=== PATIENT | male | born 1950 | race Caucasian/White ===

== ENCOUNTER 2017-05-31 05:14 | Inpatient (IN) | payer BC, OTHER ==
[2017-05-19 08:20] VITALS: BMI 31.0
--- NOTE | 2017-05-19 08:58 | PAT Medication Instructions ---
Service Date May 19, 2017. Current Home Medication List Loratadine (Claritin), 10 MG PO PRN PRN for ALLERGIES Naproxen (Aleve), 220 MG PO PRN PRN for PAIN Medication Instructions For Your Scheduled Surgery - Hold the following medications the morning of surgery: Loratadine (Claritin), 10 MG PO PRN for ALLERGIES Naproxen (Aleve), 220 MG PO PRN for PAIN *Nothing to eat or drink after midnight* If you have any questions please call us at [phone] or [phone] or [phone]
--- NOTE | 2017-05-19 09:36 | DIAGNOSTIC IMAGING REPORT ---
CHEST PREADMISSION(PA/LAT) HISTORY: 67-year-old male resents for a preoperative screening chest radiograph for left hip surgery. COMPARISON: None available. TECHNIQUE: Frontal and lateral views of the chest. FINDINGS: There is no pneumothorax, pleural effusion or focal airspace consolidation. No overt pulmonary edema. The cardiac silhouette is upper limits of normal. Degenerative changes are present within the right AC joint. There is mild convex right curvature of the midthoracic spine with multilevel endplate spurring and intervertebral disc space narrowing. IMPRESSION: No acute cardiopulmonary process. Electronically signed by: Almas Davenport 05/19/2017 9:34 AM Dictated Date/Time: 05/19/2017 9:32 AM
[2017-05-19 10:04] LABS: BASO % 0.6 %; BASO ABS # 0.04 K/uL (0-0.2); COMPLETE YES; EOS % 1.1 %; HEMATOCRIT 45.2 % (42-52); IG% 0.5 %; LYMPH % 28.1 %; LYMPH ABS # 1.81 K/uL (1.2-3.4); MEAN CELL VOLUME 91.5 fL (80-100); MEAN CORPUSCULAR HEMOGLOBIN 30.2 pg (25-34); MEAN PLATELET VOLUME 10.2 fL (7.4-10.4); MONO % 8.5 %; NEUT % 61.2 %; PLATELET COUNT 242 K/uL (130-400); RED BLOOD COUNT 4.94 M/uL (4.7-6.1); WHITE BLOOD COUNT 6.44 K/uL (4.8-10.8)
[2017-05-19 10:05] LABS: URINE APPEARANCE CLEAR (CLEAR); URINE BILIRUBIN NEG (NEG); URINE COLOR YELLOW; URINE NITRITE NEG (NEG); URINE SPECIFIC GRAVITY 1.023 (1.000-1.030); UROBILINOGEN NEG (NEG)
[2017-05-19 10:07] LABS: MANUAL MICROSCOPIC REQUIRED? NO; REVIEW REQ? NO
[2017-05-19 10:12] LABS: PROTHROMBIN TIME (PATIENT) 10.5 SECONDS (9.0-12.0)
[2017-05-19 10:55] LABS: ESTIMATED AVERAGE GLUCOSE 103 mg/dl; HA1C FLAG Normal (Normal)
[2017-05-19 11:05] LABS: BUN/CREATININE RATIO 16.6 (10-20); CALCIUM 8.8 mg/dl (8.5-10.1); CREATININE 1.2 mg/dl (0.60-1.40); POTASSIUM 3.8 mmol/L (3.5-5.1)
--- NOTE | 2017-05-28 15:55 | History and Physical ---
History & Physical Date May 28, 2017. Chief Complaint Right hip pain History of Present Illness The patient is a 67 year old male with complaints of right hip pain. Pt has known severe DJD. He has continued pain and disability with ADLs and desires to proceed with total hip arthroplasty Additional History Hepatic Disease: No Endocrine Disorder: No Kidney Disease: No Hypertension: Yes Heart Disease: No Bleeding Tendencies: No Infectious Diseases: No Allergies Coded Allergies: No Known Allergies (Unverified , 05/19/17) Home Medications Scheduled Lisinopril (Lisinopril), 2.5 MG PO QAM Scheduled PRN Loratadine (Claritin), 10 MG PO PRN PRN for ALLERGIES Naproxen (Aleve), 220 MG PO PRN PRN for PAIN Physical Examination Skin: warm/dry Eyes: normal inspection, EOMI ENT: normal ENT inspection Head: normocephalic, atraumatic Neck: supple, no adenopathy Respiratory/Chest: lungs clear Cardiovascular: regular rate, rhythm Abdomen / GI: normal bowel sounds, non tender Extremities: + pertinent finding (Right hip with limited active and passive ROM with groin pain) Addiitonal Comments: Xrays: severe DJD right hip with complete loss of joint space, deformation of femoral head, femoral head and acetabular cysts Diagnosis Severe right hip DJD Plan of Treatment Right total hip arthroplasty
[2017-05-31] VITALS (10 sets, daily range): BP systolic 107–165; BP diastolic 65–102; PULSE 61–89; TEMP 36.5–36.8; O2SAT 97–100; Ht 175.3 cm; Wt 97.5 kg
[~2017-05-31] VITALS: Ht 175.3 cm; Wt 97.5 kg
[~2017-05-31 05:14] MED LIST: CLR10 PO; LISI2.5T5 PO; NAPR1TAB9 PO
[2017-05-31] MEDS ORDERED: FAMOTIDINE 20 MG TAB PO SCH (06:00)
[2017-05-31] MEDS ORDERED: GABAPENTIN 300 MG CAP PO SCH (06:00)
[2017-05-31] MEDS ORDERED: LACTATED RINGER'S 1000ML 500 ML IV ONE (06:00)
[2017-05-31] MEDS ORDERED: ACETAMINOPHEN 500 MG TAB PO SCH (06:00)
[2017-05-31] MEDS ORDERED: LACTATED RINGER'S 1000ML 1,000 ML IV SCH (06:00)
[2017-05-31] MEDS ORDERED: DEXAMETHASONE 4 MG TAB PO SCH (06:00)
[2017-05-31] MEDS ORDERED: METOCLOPRAMIDE HCL 10 MG TAB PO SCH (06:00)
[2017-05-31] MEDS ORDERED: CEFAZOLIN 2000 MG/60 ML D5W IV SCH (06:00)
[2017-05-31] MEDS ORDERED: ROPIVACAINE 5MG/ML 30 ML 150 MG, BUPIVACAINE/EPINEPHR 0.5% MPF 30 ML, KETOROLAC TROMETH... INFIL SCH ×7 (06:00)
[2017-05-31] MEDS ORDERED: CEFAZOLIN 2000 MG/60 ML D5W 60 ML IV SCH (06:00)
[2017-05-31] MEDS ORDERED: CeleBREX 200 MG CAP PO SCH (06:00)
[2017-05-31] MEDS ORDERED: POVIDONE-IODINE OP SOLN 30 ML BTL ONE (06:26)
[2017-05-31] MEDS ORDERED: BACITRACIN 50000 UNIT VIAL ONE (06:26)
[2017-05-31] MEDS ORDERED: ORTHO JOINT ANESTHETIC ONE (06:26)
[2017-05-31] MEDS ORDERED: BUPIVACAINE 0.5 % 5 MG/1 ML PF 10ML VIAL ONE (06:30)
[2017-05-31] MEDS: TRANEXAMIC ACID INJ 1,000 MG in SODIUM CHLORIDE 0.9% 100ML 100 ML IV SCH ×2 (06:30→06:51)
[2017-05-31] MEDS ORDERED: FENTANYL CITRATE INJ 50 MCG/1 ML 2 ML VIAL ONE (06:37)
[2017-05-31] MEDS ORDERED: PROPOFOL IV EMULSION 10 MG/ML 20 ML VIAL IV ONE (06:37)
[2017-05-31] MEDS ORDERED: MIDAZOLAM HCL 1 MG/ML 2ML VIAL ONE (06:37)
[2017-05-31] MEDS ORDERED: ONDANSETRON INJ 2 MG/ML 2 ML VIAL ONE (06:37)
--- NOTE | 2017-05-31 06:56 | History & Physical Bridge Note ---
H&P Re-Evaluation Bridge Note: I have examined the patient, reviewed the History & Physical and in the interval since the performance of the History & Physical I have noted the following changes of clinical significance: No changes noted
[2017-05-31] MEDS ORDERED: PROMETHAZINE HCL INJ 6.25 MG in SODIUM CHLORIDE 0.9% 50ML 50 ML IV PRN (07:00)
[2017-05-31] MEDS ORDERED: FENTANYL CITRATE INJ 50 MCG/1 ML 2 ML VIAL IV PRN (07:00)
[2017-05-31] MEDS ORDERED: ONDANSETRON INJ 2 MG/ML 2 ML VIAL IV PRN ×2 (07:00→08:30)
[2017-05-31] MEDS ORDERED: EpHEDrine SULFATE INJ 50 MG/ML AMP IV PRN (07:00)
[2017-05-31] MEDS ORDERED: ATROPINE SULFATE 0.1 MG/ML 5ML SYR IV PRN (07:00)
[2017-05-31] MEDS ORDERED: WATER, STERILE FOR INJ 10 ML VIAL ONE (07:16)
[2017-05-31] MEDS ORDERED: PHENYLEPHRINE 100MCG/ML 5ML SYR ONE (07:16)
[2017-05-31] MEDS ORDERED: EpHEDrine SULFATE INJ 50 MG/ML AMP ONE (07:16)
--- NOTE | 2017-05-31 07:56 | [facility] Operative Report ---
Operative Report Operative Date May 31, 2017. Pre-Operative Diagnosis Right Hip Degenerative Joint Disease Post-Operative Diagnosis Same as preop Procedure(s) Performed Right Total Hip Arthroplasty Uncemented patient's right hip was prepped and draped in usual sterile manner was in the left lateral decubitus position. A right total back incision was made subcutaneous tissue was sharply dissected electrocautery was used for hemostasis. The fascia was incised throughout the length of the wound and the short external rotators were tagged with a Vicryl suture and reviewed divided from the posterior aspect of the femur using electrocautery. A T capsulotomy incision was made hip was dislocated using combination of flexion abduction and internal rotation. The femoral neck was osteotomized just proximal to the lesser trochanter and was removed using an osteotome and a mallet. Attention was next turned to the acetabulum where fibers labrum and capsule were removed and sequential reamings were taken up to size 56 which gave good exposure of subchondral bone. The acetabular component was impacted into position. A single 35 mm screw used to affix the acetabular component. A high wall liner was impacted into position was checked for full insertion with a Sofia. This being documented the retractors were removed and attention was turned to the proximal femur. An osteotome box osteotome was used to open the canal and the canal finder obtained and utilized. Sequential raspings were taken up to size 5 which gave good fit and fill of the femur with full rotational stability. Trial reduction was carried out using a -2.5 femoral neck which gave good reproduction of soft tissue tension and leg. The trial was dislocated and the final stem ceramic femoral head was impacted in position. Hip was relocated and was found stable to 90 flexion with 60 of internal rotation prior to dislocation. Wound was irrigated with pulsatile irrigation. The piriformis was reattached to the greater trochanter 1 Vicryl. Joint mix was injected throughout the hip fascia was closed over Hemovac drain stitch was closed 0 Dexon and skin was closed as applying sterile dressing was applied patient tolerated the procedure well Mr. Nunez was the assistant strength coach whose essentials were all components of the case including positioning prepping draping surgical cyst wound closure and dressing application. Surgeon Dr. To Planning Advisor Surgeon(s) Tr Nunez PA-C Estimated Blood Loss 150 ml Findings oa Specimens A. Right Femoral Head Disposition Surgical ICU I attest to the content of the Intraoperative Record and any orders documented therein. Any exceptions are noted below.
[2017-05-31] MEDS ORDERED: BISACODYL 10 MG SUPP PR PRN (08:30)
[2017-05-31] MEDS ORDERED: MoRPHine SULFATE 2 MG/ML CARP IV PRN (08:30)
[2017-05-31] MEDS ORDERED: TAMSULOSIN HCL 0.4 MG CAP PO PRN (08:30)
[2017-05-31] MEDS ORDERED: MoRPHine SULFATE 4 MG/ML 1 ML CARP\\VIAL IV PRN (08:30)
[2017-05-31] MEDS ORDERED: TRAMADOL HCL 50 MG TAB PO PRN (08:30)
[2017-05-31] MEDS ORDERED: ALUMINUM/MAGNESIUM/SIMETH (MAALOX MAX) 30 ML UDC PO PRN (08:30)
[2017-05-31] MEDS ORDERED: MAGNESIUM HYDROXIDE SUSP 30 ML UDC PO PRN (08:30)
[2017-05-31] MEDS: DOCUSATE SODIUM 100 MG CAP PO SCH ×2 (09:00→20:49)
[2017-05-31] MEDS: MULTIVITAMIN TAB PO SCH (09:00)
[2017-05-31] MEDS: PANTOprazole SOD 40 MG TAB PO SCH (09:00)
--- NOTE | 2017-05-31 09:12 | Anesthesiology Progress Note ---
Anesthesia Post Op Note Date & Time May 31, 2017 at 09:12 Vital Signs Pain Intensity: 0 Vital Signs Past 12 Hours Date Time Temp Pulse Resp B/P (MAP) Pulse Ox O2 Delivery O2 Flow Rate FiO2 05/31/17 09:05 36.7 61 22 121/82 99 Nasal Cannula 2 05/31/17 08:55 63 19 136/92 99 Nasal Cannula 2 05/31/17 08:45 59 27 126/87 98 Nasal Cannula 2 05/31/17 08:35 58 15 124/79 98 Nasal Cannula 2 05/31/17 08:25 36.2 77 16 136/92 98 Nasal Cannula 2 05/31/17 05:46 36.8 75 20 165/102 99 Room Air Notes Mental Status: alert / awake / arousable, participated in evaluation Pt Amnestic to Procedure: Yes Nausea / Vomiting: adequately controlled Pain: adequately controlled Airway Patency, RR, SpO2: stable & adequate BP & HR: stable & adequate Hydration State: stable & adequate Neuraxial Anesthesia: was administered, sensory block is resolving Anesthetic Complications: no major complications apparent
--- NOTE | 2017-05-31 09:34 | DIAGNOSTIC IMAGING REPORT ---
AP PELVIS AND RIGHT HIP 2 VIEWS CLINICAL HISTORY: Postop study. Osteoarthritis. COMPARISON STUDY: No previous studies for comparison. FINDINGS: There are postsurgical changes of a total right hip arthroplasty. The acetabular and femoral components appear well seated. There are overlying surgical drains. There is air within the soft tissues consistent with recent surgery. IMPRESSION: Postsurgical changes of a total right hip arthroplasty. Electronically signed by: Toi Platt M.D. 05/31/2017 9:33 AM Dictated Date/Time: 05/31/2017 9:32 AM
[2017-05-31] MEDS: D5W AND 1/2NSS + 20MEQ KCL 1,000 ML IV SCH ×2 (11:13→20:48)
[2017-05-31] MEDS: LISINOPRIL 2.5 MG TAB PO SCH (11:15)
[2017-05-31] MEDS: FERROUS GLUCONATE 324 MG TAB PO SCH ×2 (12:19→17:59)
[2017-05-31] MEDS: ACETAMINOPHEN 500 MG TAB PO SCH ×2 (13:48→20:49)
[2017-05-31] MEDS: CEFAZOLIN IV 2,000 MG in DEXTROSE 5% 50ML 50 ML IV SCH ×2 (15:56→23:41)
[2017-05-31] MEDS: ASPIRIN 81 MG ECTAB PO SCH (20:49)
[2017-06-01 04:14] VITALS: BP 117/74; PULSE 57; TEMP 36.5; O2SAT 100
[2017-06-01] MEDS: ACETAMINOPHEN 500 MG TAB PO SCH ×3 (05:43→20:26)
[2017-06-01] MEDS: D5W AND 1/2NSS + 20MEQ KCL 1,000 ML IV SCH (05:43)
[2017-06-01 06:32] LABS: BASO % 0.2 %; BASO ABS # 0.02 K/uL (0-0.2); COMPLETE YES; EOS % 0.1 %; HEMATOCRIT 35.8 % (42-52); IG% 0.2 %; LYMPH % 14.7 %; LYMPH ABS # 1.25 K/uL (1.2-3.4); MEAN CELL VOLUME 91.6 fL (80-100); MEAN CORPUSCULAR HEMOGLOBIN 30.2 pg (25-34); MEAN PLATELET VOLUME 10.6 fL (7.4-10.4); MONO % 11.7 %; NEUT % 73.1 %; PLATELET COUNT 180 K/uL (130-400); RED BLOOD COUNT 3.91 M/uL (4.7-6.1); WHITE BLOOD COUNT 8.48 K/uL (4.8-10.8)
[2017-06-01 07:04] LABS: BUN/CREATININE RATIO 15.2 (10-20); CREATININE 1.1 mg/dl (0.60-1.40)
[2017-06-01] MEDS: OXYCODONE HCL IR 5 MG TAB (IMMEDIATE RELEASE) PO PRN ×2 (07:16→14:13)
[2017-06-01 07:40] VITALS: BP 136/82; PULSE 64; TEMP 36.4; O2SAT 98
--- NOTE | 2017-06-01 07:57 | Orthopedic Progress Note ---
Orthopedic Progress Note Date of Service Jun 01, 2017. Subjective Post OP Day: 1 Reports: feeling well, Denies: chest pain, SOB, nausea / vomiting, light headedness, calf pain Objective calves soft nontender, N/V intact, dressing C/D/I, A&O x3, toes mobile, hemovac drainage (275/75 cc per shift) Date Time Temp Pulse Resp B/P (MAP) Pulse Ox O2 Delivery O2 Flow Rate FiO2 06/01/17 07:40 36.4 64 16 136/82 (100) 98 Room Air 06/01/17 04:14 36.5 57 17 117/74 (88) 100 Room Air 05/31/17 23:44 Room Air 05/31/17 23:04 36.5 61 15 107/65 (79) 98 Room Air 05/31/17 18:51 36.7 70 16 115/76 (89) 97 Room Air 05/31/17 15:50 Room Air 05/31/17 15:13 36.8 84 16 119/77 (91) 97 Room Air 05/31/17 12:26 89 16 123/79 (94) 98 Nasal Cannula 2.0 05/31/17 11:29 88 16 141/88 (105) 100 2.0 05/31/17 11:15 83 127/81 (96) 05/31/17 10:32 88 16 128/76 (93) 99 2.0 05/31/17 09:57 68 16 130/81 (97) 97 2.0 05/31/17 09:30 100 Nasal Cannula 2.0 05/31/17 09:30 Nasal Cannula 2.0 05/31/17 09:30 36.5 71 16 128/79 (95) 100 Nasal Cannula 2.0 05/31/17 09:15 65 22 123/84 99 Nasal Cannula 2 05/31/17 09:05 36.7 61 22 121/82 99 Nasal Cannula 2 05/31/17 08:55 63 19 136/92 99 Nasal Cannula 2 05/31/17 08:45 59 27 126/87 98 Nasal Cannula 2 05/31/17 08:35 58 15 124/79 98 Nasal Cannula 2 05/31/17 08:25 36.2 77 16 136/92 98 Nasal Cannula 2 Laboratory Results 24 Hours: Test 06/01/17 05:12 White Blood Count 8.48 K/uL Red Blood Count 3.91 M/uL Hemoglobin 11.8 g/dL Hematocrit 35.8 % Mean Corpuscular Volume 91.6 fL Mean Corpuscular Hemoglobin 30.2 pg Mean Corpuscular Hemoglobin Concent 33.0 g/dl Platelet Count 180 K/uL Mean Platelet Volume 10.6 fL Neutrophils (%) (Auto) 73.1 % Lymphocytes (%) (Auto) 14.7 % Monocytes (%) (Auto) 11.7 % Eosinophils (%) (Auto) 0.1 % Basophils (%) (Auto) 0.2 % Neutrophils # (Auto) 6.19 K/uL Lymphocytes # (Auto) 1.25 K/uL Monocytes # (Auto) 0.99 K/uL Eosinophils # (Auto) 0.01 K/uL Basophils # (Auto) 0.02 K/uL Assessment & Plan Assessment: POD#1 RIGHT HARINDER Inhouse Planning Pain Management: Celebrex, PO Tylenol, Oxy IR DVT Prophylaxis: TEDs, SCDs, ASA Discharge Planning Discharge Planning: home with home health (POSSIBLE DC TO HOME LATER TODAY IF DOING WELL.)
--- NOTE | 2017-06-01 08:27 | Anesthesiology Progress Note ---
Anesthesia Post Op Note Date & Time Jun 01, 2017 at 08:26 Vital Signs Pain Intensity: 5.0 Vital Signs Past 12 Hours Date Time Temp Pulse Resp B/P (MAP) Pulse Ox O2 Delivery O2 Flow Rate FiO2 06/01/17 07:40 36.4 64 16 136/82 (100) 98 Room Air 06/01/17 04:14 36.5 57 17 117/74 (88) 100 Room Air 05/31/17 23:44 Room Air 05/31/17 23:04 36.5 61 15 107/65 (79) 98 Room Air Notes Mental Status: alert / awake / arousable, participated in evaluation Pt Amnestic to Procedure: Yes Nausea / Vomiting: adequately controlled Pain: adequately controlled Airway Patency, RR, SpO2: stable & adequate BP & HR: stable & adequate Hydration State: stable & adequate Neuraxial Anesthesia: sensory block resolved Anesthetic Complications: no major complications apparent
[2017-06-01] MEDS: FERROUS GLUCONATE 324 MG TAB PO SCH ×3 (08:35→17:21)
[2017-06-01] MEDS: ASPIRIN 81 MG ECTAB PO SCH ×2 (08:35→20:25)
[2017-06-01] MEDS: PANTOprazole SOD 40 MG TAB PO SCH (08:36)
[2017-06-01] MEDS: MULTIVITAMIN TAB PO SCH (08:36)
[2017-06-01] MEDS: LISINOPRIL 2.5 MG TAB PO SCH (08:36)
[2017-06-01] MEDS: DOCUSATE SODIUM 100 MG CAP PO SCH ×2 (08:36→20:25)
[2017-06-01 10:16] VITALS: O2SAT 98
--- NOTE | 2017-06-01 10:30 | Discharge Instructions ---
Discharge Instructions Date of Service Jun 01, 2017. Admission Reason for Admission: Unilateral Primary Osteoarthritis , Right Hip Discharge Discharge Diagnosis / Problem: Djd Right Hip Discharge Goals Goal(s): Decrease discomfort, Improve function Activity Recommendations Activity Limitations: per Instructions/Follow-up section Weightbearing Status: Right weightbearing (as tolerated) . Instructions / Follow-Up Instructions / Follow-Up ACTIVITY RECOMMENDATIONS: SELF CARE INSTRUCTIONS AFTER TOTAL HIP REPLACEMENT Until the incision and soft tissues around your hip have healed, there is a possibility that the hip prosthesis could dislocate. A. Observe the following precautions to prevent dislocation: 1. Don't bend your hip greater than 90 degrees. 2. Avoid crossing your legs or ankles while standing or lying. 3. Sit with your feet placed 6 inches apart. 4. When sitting, keep your knees below your hips. Sit on a firm surface, avoid deep, soft chairs and couches. Use an elevated toilet seat in the bathroom. 5. Don't bend over at the waist. Use a long handled shoehorn and a sock aid to help you put on your shoes and socks. A music department chair can help you picker and sorter load and unload objects that are too high or too low to reach. 6. Keep car riding to a minimum for at least one month after surgery. B. Your balance may be shaky for a while. Use crutches or a walker until directed by your doctor. C. Use hand rails when walking on stairs. D. Wear low heeled shoes with non-slip soles. E. Be sure that your floors are free of things that could trip you - throw rugs , electrical cords, small objects. Avoid wet and waxed floors, especially with crutches and canes. F. Try to walk several times a day with rest periods between. G. Continue with all the exercises taught to you in the hospital. Again, make walking a part of your daily routine. SPECIAL CARE INSTRUCTIONS: VERY IMPORTANT TO READ AND REVIEW A. You may still be at risk for phlebitis and blood clots. 1. Wear surgical stockings (TIFFANIE hose) for 2 weeks after surgery to improve circulation and reduce swelling. 2. Take Aspirin 81mg twice daily for 4 weeks or as directed by your doctor. This is your blood thinner. 3. High risk patients may be prescribed a stronger blood thinner if necessary. 4. If you are on Coumadin normally, your family doctor/director stage should monitor your blood work. Expect a phone call the day of or the day after bloodwork is drawn to adjust your dosage. B. You must take antibiotics before having dental work, bladder, bowel and other surgery. Your doctor will provide you with a permanent card to carry describing precautions. C. Call [facility] if you have a fever, redness or swelling around the incision, cloudy drainage from incision, or sudden increase in pain in your hip, not relieved by your regular pain medication. D. Please call the office at if you have any concerns or questions about your operation or recovery. * YOU MAY SHOWER, NO TUB BATHS UNTIL CLEARED BY YOUR DOCTOR. * WEAR TIFFANIE HOSE 20 HOURS PER DAY FOR 2 WEEKS. * YOU SHOULD USE A WALKER OR CRUTCHES FOR 2-4 WEEKS. THIS WILL HELP PREVENT STRAIN ON YOUR HIP MUSCLE AND ALLOW IT TO HEAL PROPERLY. YOU MAY WEAN TO A CANE TOLERATED. * MOST PATIENTS WILL HAVE HOME NURSING FOR THERAPY. IF YOU DECIDE TO DO OUTPATIENT PHYSICAL THERAPY, PLEASE SCHEDULE THIS 3 TIMES PER WEEK. * Change dressing daily. If the wound is dry and not draining, you may leave it to the open air. Please keep incision clean and dry. You may shower. No direct shower pressure to the wound itself. No tub baths. Do not soak the wound. [place] should be removed in 10-14 days at the office. This appointment is likely already scheduled for you. Please call if any increased redness, drainage, or swelling. . FOLLOW UP VISIT: If appointment is not already scheduled: Please call [facility] to make a follow-up appointment for 2 weeks after your surgery at . Current Hospital Diet Patient's current hospital diet: Regular Diet Discharge Diet Recommended Diet: Regular Diet Procedures Procedures Performed: Right Total Hip Arthroplasty Uncemented patient's right hip was prepped and draped in usual sterile manner was in the left lateral decubitus position. A right total back incision was made subcutaneous tissue was sharply dissected electrocautery was used for hemostasis. The fascia was incised throughout the length of the wound and the short external rotators were tagged with a Vicryl suture and reviewed divided from the posterior aspect of the femur using electrocautery. A T capsulotomy incision was made hip was dislocated using combination of flexion abduction and internal rotation. The femoral neck was osteotomized just proximal to the lesser trochanter and was removed using an osteotome and a mallet. Attention was next turned to the acetabulum where fibers labrum and capsule were removed and sequential reamings were taken up to size 56 which gave good exposure of subchondral bone. The acetabular component was impacted into position. A single 35 mm screw used to affix the acetabular component. A high wall liner was impacted into position was checked for full insertion with a Sofia. This being documented the retractors were removed and attention was turned to the proximal femur. An osteotome box osteotome was used to open the canal and the canal finder obtained and utilized. Sequential raspings were taken up to size 5 which gave good fit and fill of the femur with full rotational stability. Trial reduction was carried out using a -2.5 femoral neck which gave good reproduction of soft tissue tension and leg. The trial was dislocated and the final stem ceramic femoral head was impacted in position. Hip was relocated and was found stable to 90 flexion with 60 of internal rotation prior to dislocation. Wound was irrigated with pulsatile irrigation. The piriformis was reattached to the greater trochanter 1 Vicryl. Joint mix was injected throughout the hip fascia was closed over Hemovac drain stitch was closed 0 Dexon and skin was closed as applying sterile dressing was applied patient tolerated the procedure well Mr. Nunez was the registered dental assistant rda whose essentials were all components of the case including positioning prepping draping surgical cyst wound closure and dressing application. Pending Studies Studies pending at discharge: no Laboratory Results Hemoglobin A1c Test 05/19/17 09:11 Range/Units Estimated Average Glucose 103 mg/dl Hemoglobin A1c 5.2 4.5-5.6 % Medical Emergencies . Who to Call and When: Medical Emergencies: If at any time you feel your situation is an emergency, please call 911 immediately. . Non-Emergent Contact Non-Emergency issues call your: Surgeon Call Non-Emergent contact if: temperature is above 101.5, your pain is not controlled, your pain is worsening, wound has increased drainage, wound has increased redness . "Provider Documentation" section prepared by Tr Nunez. . VTE Core Measure Inpt VTE Proph given/why not?: Other Anticoagulation, T.E.D. Stockings, SCD's [place] Drug Monitoring Program Search Results: patient reviewed within database, no issues identified
[2017-06-01 12:04] VITALS: BP 130/80; PULSE 70; TEMP 36.4; O2SAT 98
[2017-06-01 15:09] VITALS: BP 138/83; PULSE 61; TEMP 36.8; O2SAT 99
[2017-06-01] MEDS ORDERED: SNK PO (16:08)
[2017-06-01] MEDS ORDERED: ASPEC81 PO (16:08)
[2017-06-01] MEDS ORDERED: ACET-24 PO (16:08)
[2017-06-01] MEDS ORDERED: RXC5 PO (16:08)
[2017-06-01] MEDS ORDERED: CLB200 PO (16:08)
[2017-06-02 00:17] VITALS: BP 133/82; PULSE 71; TEMP 36.6; O2SAT 99
[2017-06-02] MEDS: ACETAMINOPHEN 500 MG TAB PO SCH (05:29)
--- NOTE | 2017-06-02 07:03 | Orthopedic Progress Note ---
Orthopedic Progress Note Date of Service Jun 02, 2017. Subjective Post OP Day: 2 Reports: feeling well, Denies: complaints Additional Notes: Had an episode of emesis last night but is feeling much better this AM. Pain controlled. Hoping to go home today. Objective calves soft nontender, N/V intact, hip located, dressing C/D/I, A&O x3, toes mobile Date Time Temp Pulse Resp B/P (MAP) Pulse Ox O2 Delivery O2 Flow Rate FiO2 06/02/17 00:17 36.6 71 16 133/82 (99) 99 Room Air 06/02/17 00:17 Room Air 06/01/17 15:20 Room Air 06/01/17 15:09 36.8 61 16 138/83 (101) 99 Room Air 06/01/17 12:04 36.4 70 16 130/80 (97) 98 Room Air 06/01/17 10:16 98 Room Air 06/01/17 07:40 36.4 64 16 136/82 (100) 98 Room Air 06/01/17 07:10 Room Air Assessment & Plan Assessment: POD#2 RIGHT HARINDER Plan: Plan for DC home today after AM PT Inhouse Planning Pain Management: Morphine, PO Tylenol, Oxy IR DVT Prophylaxis: TEDs, SCDs, ASA Discharge Planning Discharge Planning: home with home health (POSSIBLE DC TO HOME LATER TODAY IF DOING WELL.) Pain Management: Celebrex, PO Tylenol, Oxy IR DVT Prophylaxis: TEDs, ASA Therapy: Physical Therapy
[2017-06-02 07:59] VITALS: BP 148/80; PULSE 66; TEMP 36.7; O2SAT 99
[2017-06-02] MEDS: DOCUSATE SODIUM 100 MG CAP PO SCH (08:50)
[2017-06-02] MEDS: FERROUS GLUCONATE 324 MG TAB PO SCH (08:50)
[2017-06-02] MEDS: ASPIRIN 81 MG ECTAB PO SCH (08:50)
[2017-06-02] MEDS: PANTOprazole SOD 40 MG TAB PO SCH (08:51)
[2017-06-02] MEDS: LISINOPRIL 2.5 MG TAB PO SCH (08:51)
[2017-06-02] MEDS: MULTIVITAMIN TAB PO SCH (08:51)
[2017-06-02] MEDS: OXYCODONE HCL IR 5 MG TAB (IMMEDIATE RELEASE) PO PRN (08:54)
[2017-06-02 09:08] VITALS: O2SAT 99
[2017-06-02 11:01] VITALS: BP 148/80; PULSE 66; TEMP 36.7; O2SAT 99
--- NOTE | 2017-06-02 15:37 | Discharge Summary ---
Orthopedic Discharge Summary Admission Date/Reason May 31, 2017 at 06:41 Unilateral Primary Osteoarthritis , Left Hip. Discharge Date/Disposition Jun 02, 2017 Home with services Diagnosis Principal Diagnosis: Left Hip Djd Secondary Diagnoses/Problems: Htn Procedure(s) Performed Left HARINDER Medication Reconciliation New Medications: Celecoxib (Celebrex) 200 Mg Cap 1 TAB PO DAILY, #30 Senna (Senna Lax) 8.6 Mg Tab 2 TABS PO HS, #30 Acetaminophen (Sb Non-Aspirin Extra Stre) 500 Mg Tab 1000 MG PO Q8 for 30 Days, #180 TAB Aspirin (Aspirin EC Low Dose) 81 Mg Ectab 81 MG PO BID for 30 Days Oxycodone HCl (Oxycodone HCl) 5 Mg Tab 5-10 MG PO Q4H PRN for Pain, #60 TAB Continued Medications: Lisinopril (Lisinopril) 2.5 Mg Tab 2.5 MG PO QAM, TAB Loratadine (Claritin) 10 Mg Tab 10 MG PO PRN PRN for ALLERGIES, TAB Discontinued Medications: Naproxen (Aleve) 220 Mg Tab 220 MG PO PRN PRN for PAIN , TAB Admission Physical Exam As per Admitting History & Physical. Hospital Course The Patient had an uneventful hospital course. Labs remained stable- lowest hemoglobin recorded: 11.8 . Pain controlled on oral medications. Participated in PT with ambulation distance of 550 feet. Drainage output totaled 430 cc prior to discontinuation. Patient did have a reported bowel movement. Incision remained clean/dry/intact; leg lengths equal. DVT prophylaxis with Aspirin EC 81mg BID x 30 days/Daniel stockings. Patient discharged home with Home Health Services in stable condition. Please refer to daily progress notes for further details. Discharge Instructions Please refer to the electronic Patient Visit Report (Discharge Instructions) for additional information.
== END 2017-06-02 11:24 | disposition home or self-care (01) | DRG 470 ==
LOC: C.ACU 05:14 → C.3E 06:41 → ENRESERV 09:09
PROC: 0SR90JA Replacement of Right Hip Joint with Synthetic Substitute, Uncemented, Open Approach (ICD-10-PCS; principal; 2017-05-31 07:00)
DX: M16.11 Unilateral primary osteoarthritis, right hip (principal); M25.851 Other specified joint disorders, right hip; R11.11 Vomiting without nausea; I10 Essential (primary) hypertension; E66.9 Obesity, unspecified; Z68.31 Body mass index [BMI] 31.0-31.9, adult; Z79.899 Other long term (current) drug therapy